=== PATIENT | male | born 1985 | race Caucasian/White ===

== ENCOUNTER 2017-04-09 13:56 | Inpatient (IN) | payer OTHER, MEDICAID ==
[~2017-04-09] VITALS: Ht 175.3 cm; Wt 90.9 kg
[~2017-04-09 13:56] MED LIST: CLON1 PO; HALO10TA15 PO; PANT40TA25 PO; ZIPR80CA2 PO
[2017-04-09 14:38] LABS: BASOPHILS % (AUTO) 0.4 % (0.0-2.0); EOSINOPHILS % (AUTO) 0.1 % (1.0-6.0); HEMATOCRIT 43.2 % (41-53); LYMPHOCYTES # (AUTO) 1.1 K/uL (1.0-4.8); LYMPHOCYTES % (AUTO) 17.1 % (22.0-44.0); MEAN CORPUSCULAR HEMOGLOBIN 30.5 pg (26.0-34.0); MEAN CORPUSCULAR HGB CONC 34.8 G/dL (31.0-37.0); MEAN CORPUSCULAR VOLUME 88 fL (80-100); MONOCYTES # (AUTO) 0.4 K/uL (0.1-1.0); MONOCYTES % (AUTO) 6.2 % (2.0-9.0); NEUTROPHILS # (AUTO) 5.1 K/uL (1.8-7.7); NEUTROPHILS % (AUTO) 76.2 % (40.0-70.0); PLATELET COUNT (AUTO) 203 K/uL (150-450); RED BLOOD CELL COUNT(AUTO) 4.93 MIL/uL (4.50-5.90); WHITE BLOOD COUNT (AUTO) 6.7 K/uL (4.5-11.0)
[2017-04-09 14:53] LABS: ANION GAP 12 mmol/L (8-16); CALCIUM, TOTAL 8.5 mg/dL (8.8-10.5); CARBON DIOXIDE 24 mmol/L (22-29); CHLORIDE 106 mmol/L (98-107); CREATININE 1.01 mg/dL (0.60-1.30); GLOMERULAR FILTR. RATE CALC > 60 mL/min (>60); POTASSIUM 3.6 mmol/L (3.5-5.1); SODIUM SERUM 142 mmol/L (136-145); UREA NITROGEN, BLOOD 17 mg/dL (7-18)
[2017-04-09 14:59] LABS: ALANINE AMINOTRANSFERASE 54 U/L (12-78); ALBUMIN 4.3 g/dL (3.4-5.0); ASPARTATE AMINOTRANSFERASE 31 U/L (15-37); BILIRUBIN,TOTAL 0.4 mg/dL (0.1-1.0); TOTAL PROTEIN, SERUM 6.9 g/dL (6.4-8.2)
[2017-04-09] MEDS ORDERED: HALOPERIDOL 5 MG TABLET PO PRN (16:00)
[2017-04-09] MEDS ORDERED: ZOLPIDEM TARTRATE 10 MG TABLET PO PRN (16:00)
[2017-04-09] MEDS: LORazepam 2 MG TABLET PO PRN (16:09)
[2017-04-09 17:21] VITALS: BP 122/68
[2017-04-09] MEDS: HALOPERIDOL 5 MG TABLET PO SCH (22:33)
[2017-04-10 07:53] LABS: CHOL/HDL RATIO 3.9 (4.2-7.3)
[2017-04-10 08:25] LABS: APPEARANCE,URINE CLEAR (CLEAR); GLUCOSE, URINE (UA) NEGATIVE (NEGATIVE); KETONES,URINE NEGATIVE (NEGATIVE); LEUKOCYTE ESTERASE ,URINE NEGATIVE (NEGATIVE); OCCULT BLOOD,URINE NEGATIVE (NEGATIVE); PROTEIN,URINE NEGATIVE (NEGATIVE)
[2017-04-10] MEDS: HALOPERIDOL 5 MG TABLET PO SCH ×2 (08:29→20:56)
[2017-04-10 08:39] LABS: ADD UA MICROSCOPIC NO
[2017-04-10 09:09] VITALS: BP 126/69
[2017-04-10 21:01] VITALS: BP 131/83
[2017-04-11 03:55] VITALS: BP 125/71
[2017-04-11 08:30] VITALS: BP_SYST 110
[2017-04-11] MEDS: HALOPERIDOL 5 MG TABLET PO SCH ×2 (08:38→21:00)
[2017-04-11 16:53] VITALS: BP 115/79
[2017-04-12 03:35] VITALS: BP 125/78
[2017-04-12] MEDS: LORazepam 2 MG TABLET PO PRN (03:40)
[2017-04-12 07:22] LABS: CHOL/HDL RATIO 3.6 (4.2-7.3); CREATINE KINASE MB 1.3 ng/mL (0-5); CREATINE KINASE, TOTAL 269 U/L (39-308)
[2017-04-12 07:31] LABS: HEMOGLOBIN A1C 5.1 % (4.5-6.2)
[2017-04-12 08:00] VITALS: BP 140/81
[2017-04-12] MEDS: HALOPERIDOL 5 MG TABLET PO SCH (09:00)
[2017-04-13 06:14] LABS: HEPATITIS Bs ANTIGEN SCREEN P Negative (Negative); HEPATITIS C AB SCREEN <0.1 s/co ratio (0.0-0.9)
== END 2017-04-12 13:00 | disposition home or self-care (01) | DRG 885 ==
LOC: EMS 13:57 → AHU 15:36 → 3EX 22:21
DX: F31.5 Bipolar disorder, current episode depressed, severe, with psychotic features (principal); R45.851 Suicidal ideations; H90.5 Unspecified sensorineural hearing loss; Y90.6 Blood alcohol level of 120-199 mg/100 ml; F10.129 Alcohol abuse with intoxication, unspecified; R73.9 Hyperglycemia, unspecified; F41.9 Anxiety disorder, unspecified; Z78.1 Physical restraint status
CPT/HCPCS: 80074; 80307; 82306; 82607; 82746; 83036; 83735; 84439; 84443; 99285; G0480

== ENCOUNTER 2022-09-05 15:18 | Emergency (ER) | payer MEDICARE, MEDICAID ==
[~2022-09-05] VITALS: Ht 175.3 cm; Wt 80.0 kg
[~2022-09-05 15:18] MED LIST changes: -CLON1 PO; -HALO10TA15 PO; +HALO10TA20 PO; -PANT40TA25 PO; -ZIPR80CA2 PO
[2022-09-05 15:45] VITALS: BP 151/89
[2022-09-05 15:50] LABS: BASOPHILS % (AUTO) 0.4 % (0.0-2.0); EOSINOPHILS % (AUTO) 0.1 % (1.0-6.0); HEMATOCRIT 43.2 % (41-53); HEMOGLOBIN 14.9 g/dL (13.5-17.5); LYMPHOCYTES # (AUTO) 0.8 K/uL (1.0-4.8); LYMPHOCYTES % (AUTO) 8.8 % (22.0-44.0); MEAN CORPUSCULAR HEMOGLOBIN 29.7 pg (26.0-34.0); MEAN CORPUSCULAR HGB CONC 34.4 G/dL (31.0-37.0); MEAN CORPUSCULAR VOLUME 86 fL (80-100); MONOCYTES # (AUTO) 0.6 K/uL (0.1-1.0); MONOCYTES % (AUTO) 6.3 % (2.0-9.0); NEUTROPHILS # (AUTO) 7.5 K/uL (1.8-7.7); NEUTROPHILS % (AUTO) 84.4 % (40.0-70.0); PLATELET COUNT (AUTO) 197 K/uL (150-450); RED CELL DISTRIBUTION WIDTH 13.4 % (11.5-14.5)
[2022-09-05 15:56] LABS: COVID AG,FIA SOURCE NASOPHARYNGEAL
[2022-09-05 16:06] LABS: ANION GAP 7 mmol/L (8-16); CARBON DIOXIDE 28 mmol/L (22-29); CHLORIDE 106 mmol/L (98-107); CREATININE 0.97 mg/dL (0.60-1.30); GLUCOSE,RANDOM 120 mg/dL (70-110); POTASSIUM 3.5 mmol/L (3.5-5.1); SODIUM SERUM 141 mmol/L (136-145); UREA NITROGEN, BLOOD 15 mg/dL (7-18)
[2022-09-05 16:07] LABS: GLOMERULAR FILTR. RATE CALC > 60 mL/min (>60)
[2022-09-05 16:11] LABS: ALANINE AMINOTRANSFERASE 21 U/L (12-78); ALBUMIN 4.2 g/dL (3.4-5.0); ALKALINE PHOSPHATASE 73 U/L (46-116); ASPARTATE AMINOTRANSFERASE 6 U/L (15-37); BILIRUBIN,TOTAL 0.3 mg/dL (0.1-1.0); TOTAL PROTEIN, SERUM 7.5 g/dL (6.4-8.2)
== END 2022-09-05 18:09 | disposition home or self-care (01) ==
LOC: EMS 15:44
DX: R45.1 Restlessness and agitation (principal); F31.9 Bipolar disorder, unspecified; F20.9 Schizophrenia, unspecified; Z88.8 Allergy status to other drugs, medicaments and biological substances; Z79.899 Other long term (current) drug therapy; Z20.822 Contact with and (suspected) exposure to COVID-19
CPT/HCPCS: 99285; 87426; 80053; 85025; 36415; G0480

== ENCOUNTER 2024-06-17 13:11 | Inpatient (IN) | payer MEDICARE, MEDICAID ==
[~2024-06-17] VITALS: Ht 167.6 cm; Wt 868.2 kg
[~2024-06-17 13:11] MED LIST changes: -HALO10TA20 PO; +HALO10TA21 PO
[2024-06-17 14:10] LABS: BASOPHILS % (AUTO) 0.2 % (0.0-2.0); EOSINOPHILS % (AUTO) 0.1 % (1.0-6.0); HEMATOCRIT 45.1 % (41-53); HEMOGLOBIN 15.2 g/dL (13.5-17.5); LYMPHOCYTES # (AUTO) 1.1 K/uL (1.0-4.8); LYMPHOCYTES % (AUTO) 9.1 % (22.0-44.0); MEAN CORPUSCULAR HEMOGLOBIN 29.4 pg (26.0-34.0); MEAN CORPUSCULAR HGB CONC 33.7 G/dL (31.0-37.0); MEAN CORPUSCULAR VOLUME 87 fL (80-100); MONOCYTES # (AUTO) 0.7 K/uL (0.1-1.0); MONOCYTES % (AUTO) 6.1 % (2.0-9.0); NEUTROPHILS # (AUTO) 9.9 K/uL (1.8-7.7); NEUTROPHILS % (AUTO) 84.5 % (40.0-70.0); PLATELET COUNT (AUTO) 218 K/uL (150-450); RED BLOOD CELL COUNT(AUTO) 5.17 MIL/uL (4.50-5.90); RED CELL DISTRIBUTION WIDTH 14.2 % (11.5-14.5); WHITE BLOOD COUNT (AUTO) 11.7 K/uL (4.5-11.0)
[2024-06-17 14:26] LABS: ANION GAP 14 mmol/L (8-16); CALCIUM, TOTAL 8.8 mg/dL (8.8-10.5); CARBON DIOXIDE 23 mmol/L (22-29); CHLORIDE 100 mmol/L (98-107); CREATININE 1.25 mg/dL (0.60-1.30); GLOMERULAR FILTR. RATE CALC > 60 mL/min (>60); GLUCOSE,RANDOM 179 mg/dL (70-110); POTASSIUM 3.6 mmol/L (3.5-5.1); SODIUM SERUM 137 mmol/L (136-145); UREA NITROGEN, BLOOD 15 mg/dL (7-18)
[2024-06-17 14:29] LABS: ALANINE AMINOTRANSFERASE 52 U/L (12-78); ALBUMIN 4.4 g/dL (3.4-5.0); ALKALINE PHOSPHATASE 62 U/L (46-116); ASPARTATE AMINOTRANSFERASE 19 U/L (15-37); BILIRUBIN,TOTAL 0.5 mg/dL (0.1-1.0); TOTAL PROTEIN, SERUM 7.4 g/dL (6.4-8.2)
[2024-06-17 14:39] LABS: ALCOHOL, BLOOD (SERUM) < 3 mg/dL (0-10)
[2024-06-17] MEDS ORDERED: ZOLPIDEM TARTRATE 10 MG TABLET PO PRN (15:30)
[2024-06-17] MEDS: SODIUM CHLORIDE 0.9% 250 ML IRRIG SOLUTION BOTTLE IRRIG ONE (18:25)
[2024-06-17] MEDS: HYDROCODONE/ACETAMINOPHEN 5-325 MG TABLET PO ONE (18:29)
[2024-06-17] MEDS: BACITRACIN 0.9 GM PACKET OINTMENT TP ONE (18:29)
[2024-06-18 00:56] LABS: COVID AG,FIA SOURCE NASAL SWAB
[2024-06-18 01:05] LABS: SARS-COV2 (COVID) ANTIGEN,FIA Negative (Negative)
[2024-06-18 05:40] LABS: APPEARANCE,URINE CLEAR (CLEAR); BILIRUBIN,URINE NEGATIVE (NEGATIVE); COLOR,URINE YELLOW (YELLOW); GLUCOSE, URINE (UA) NEGATIVE (NEGATIVE); KETONES,URINE NEGATIVE (NEGATIVE); LEUKOCYTE ESTERASE ,URINE NEGATIVE (NEGATIVE); NITRATE,URINE NEGATIVE (NEGATIVE); OCCULT BLOOD,URINE NEGATIVE (NEGATIVE); SPECIFIC GRAVITIY, URINE 1.034 (1.003-1.030); UROBILINOGEN,URINE <=1.0 mg/dL (<=1.0)
[2024-06-18 05:44] LABS: PROTEIN,URINE NEGATIVE (NEGATIVE)
[2024-06-18 05:49] LABS: ALCOHOL, URINE DRUG SCREEN NEGATIVE (NEGATIVE); AMPHET/METH SCREEN,URINE NEGATIVE (NEGATIVE); BARBITURATE SCREEN, URINE NEGATIVE (NEGATIVE); BENZODIAZEPINES SCREEN,URINE NEGATIVE (NEGATIVE); CANNABINOID SCREEN,URINE NEGATIVE (NEGATIVE); COCAINE SCREEN,URINE NEGATIVE (NEGATIVE); METHADONE SCREEN, URINE NEGATIVE (NEGATIVE); OPIATE SCREEN,URINE POSITIVE (NEGATIVE); PHENCYCLIDINE SCREEN,URINE NEGATIVE (NEGATIVE)
[2024-06-18 05:54] VITALS: O2SAT 97
[2024-06-18] MEDS: LORazepam 2 MG TABLET PO PRN (08:05)
[2024-06-18] MEDS ORDERED: ALBUTEROL SULFATE HFA 90 MCG/PUFF 8 GM INHALER IH PRN (09:15)
[2024-06-18] MEDS ORDERED: PETROLATUM,WHITE 28 GM JELLY TP PRN (09:15)
[2024-06-18] MEDS ORDERED: DOCUSATE SODIUM 100 MG CAPSULE PO PRN (09:15)
[2024-06-18] MEDS ORDERED: CloNIDine HCL 0.1 MG TABLET PO PRN (09:15)
[2024-06-18] MEDS ORDERED: IBUPROFEN 600 MG TABLET PO PRN (09:15)
[2024-06-18] MEDS ORDERED: MAGNESIUM HYDROXIDE SUSPENSION 30 ML UDCUP PO PRN ×2 (09:15→12:30)
[2024-06-18] MEDS ORDERED: OMEPRAZOLE 20 MG CAPSULE PO PRN (09:15)
[2024-06-18] MEDS ORDERED: ONDANSETRON 4 MG TABLET PO PRN (09:15)
[2024-06-18] MEDS ORDERED: MAG HYDROX/ALUMINUM HYD/SIMETH ES 30 ML SUSPENSION UDCUP PO PRN ×2 (09:15→12:30)
[2024-06-18] MEDS ORDERED: LOPERAMIDE HCL 2 MG CAPSULE PO PRN ×3 (09:15→12:30)
[2024-06-18] MEDS ORDERED: ACETAMINOPHEN 325 MG TABLET PO PRN (09:15)
[2024-06-18] MEDS ORDERED: BENZOCAINE/MENTHOL LOZENGE PO PRN (09:15)
[2024-06-18] MEDS ORDERED: BACITRACIN 28 GM OINTMENT TP PRN (09:15)
[2024-06-18] MEDS ORDERED: TUBERCULIN, PURIFIED PROTEIN DERIVATIVE 5 TU/0.1 ML SYRINGE ID ONE (12:30)
[2024-06-18] MEDS ORDERED: GuaiFENesin/D-METHORPHAN [SUGAR-FREE] 200-20MG/10 ML SYRUP UDCUP PO PRN (12:30)
[2024-06-18] MEDS ORDERED: HydrOXYzine PAMOATE 50 MG CAPSULE PO PRN (12:30)
[2024-06-18] MEDS ORDERED: PROMETHAZINE HCL 25 MG TABLET PO PRN (12:30)
[2024-06-18 13:56] VITALS: BP 144/88; PULSE 90; RESP 18; TEMP 98.2; O2SAT 99
[2024-06-18] MEDS: THIAMINE 100 MG TABLET PO SCH (16:40)
[2024-06-18] MEDS: HALOPERIDOL 5 MG TABLET PO PRN (16:40)
[2024-06-18] MEDS: CYANOCOBALAMIN 1,000 MCG/ML VIAL IM ONE (16:43)
[2024-06-18] MEDS: MELATONIN 5 MG TABLET PO SCH (20:30)
[2024-06-18] MEDS: OLANZapine 5 MG RAPDIS TABLET PO SCH (20:31)
[2024-06-18] MEDS: DIVALPROEX SODIUM 500 MG ER TABLET PO SCH (20:31)
[2024-06-18 23:36] VITALS: BP 135/71; PULSE 92; RESP 18; TEMP 97.9; O2SAT 97
[2024-06-19 08:08] VITALS: BP 120/71; PULSE 102; RESP 18; TEMP 97.5; O2SAT 99
[2024-06-19] MEDS: OMEGA-3/DHA/EPA/FISH OIL 1,000 MG CAPSULE PO SCH (08:44)
[2024-06-19] MEDS: MULTIVITAMINS WITH MINERALS, THERAPEUTIC TABLET PO SCH (08:44)
[2024-06-19] MEDS: FOLIC ACID 1 MG TABLET PO SCH (08:44)
[2024-06-19 09:02] LABS: HEMOGLOBIN A1C 5.5 % (3.8-5.6)
[2024-06-19 09:17] LABS: CHOL/HDL RATIO 3.7 (4.2-7.3); FREE T4 (FREE THYROXINE) 0.84 ng/dL (0.76-1.46); THYROID STIMULATING HORMONE 3.23 uIU/mL (0.36-3.74)
[2024-06-19 10:14] VITALS: BP 113/57; PULSE 103; RESP 17; TEMP 97.6; O2SAT 97
[2024-06-19 11:58] VITALS: BP 123/85; PULSE 127; RESP 18; TEMP 97.2; O2SAT 97
[2024-06-19 12:33] VITALS: BP 120/57; PULSE 105; RESP 17; TEMP 97.2; O2SAT 97
[2024-06-19] MEDS: HALOPERIDOL 5 MG TABLET PO SCH (20:30)
[2024-06-19 20:49] VITALS: BP 141/76; PULSE 116; RESP 20; TEMP 97.1; O2SAT 97
[2024-06-19] MEDS ORDERED: MELA5TAB40 PO (21:26)
[2024-06-19] MEDS ORDERED: OMEG100033 PO (21:26)
[2024-06-19] MEDS ORDERED: NALT50TA6 PO (21:26)
[2024-06-19] MEDS ORDERED: HALO5TAB23 PO (21:26)
[2024-06-20 08:30] VITALS: BP 163/80; PULSE 95; RESP 17; TEMP 98.3; O2SAT 99
== END 2024-06-20 16:44 | disposition home or self-care (01) | DRG 885 ==
LOC: EMS 13:24 → B3A 06-18 07:57
PROVIDERS: ADMIT Psychiatry & Neurology Psychiatry; ATTEND Psychiatry & Neurology Psychiatry
PROC: 0HQ0XZZ Repair Scalp Skin, External Approach (ICD-10-PCS; principal; 2024-06-18)
PROC: GZHZZZZ Group Psychotherapy (ICD-10-PCS; 2024-06-19)
PROC: GZ58ZZZ Individual Psychotherapy, Cognitive-Behavioral (ICD-10-PCS; 2024-06-19)
DX: F25.9 Schizoaffective disorder, unspecified (principal); F41.9 Anxiety disorder, unspecified; G47.00 Insomnia, unspecified; F31.9 Bipolar disorder, unspecified; Z20.822 Contact with and (suspected) exposure to COVID-19; F84.0 Autistic disorder; R73.9 Hyperglycemia, unspecified; H91.3 Deaf nonspeaking, not elsewhere classified; K59.00 Constipation, unspecified; H91.93 Unspecified hearing loss, bilateral; K21.9 Gastro-esophageal reflux disease without esophagitis; F90.9 Attention-deficit hyperactivity disorder, unspecified type; S01.01XA Laceration without foreign body of scalp, initial encounter; Z91.199 Patient's noncompliance with other medical treatment and regimen due to unspecified reason; Z88.8 Allergy status to other drugs, medicaments and biological substances; X58.XXXA Exposure to other specified factors, initial encounter; Y93.89 Activity, other specified; Y92.89 Other specified places as the place of occurrence of the external cause; Y99.8 Other external cause status
CPT/HCPCS: 70450; 72125; 80048; 80061; 80076; 80307; 81003; 83036; 84439; 84443; 85025; 99285; G0480; J3420